=== PATIENT | male | born 2000 | race Caucasian/White ===

== ENCOUNTER 2020-04-19 23:32 | Emergency (ER) | payer OTHER ==
[~2020-04-19 23:32] MED LIST: KEFLEX250 MG PO; NAPROXEN500 MG PO
[2020-04-20 00:31] LABS: BASOPHIL 1.1 % (0-2); EOSINOPHIL 6.3 % (0-5); HCT 43.9 % (42.0-52.0); HGB 15.9 g/dl (13.2-18.0); LYMPHOCYTE 39.2 % (15-48); MCH 31.9 pg (25.0-31.0); MCHC 36.2 g/dL (32.0-36.0); MCV 88.2 fL (78.0-100.0); MONOCYTE 8.9 % (0-12); MPV 10.2 fL (6.0-9.5); NEUTROPHIL 44.1 % (41-80); NRBC 0; PLT 184 K/uL (150-400); RBC 4.98 M/uL (4.70-6.00); RDW 12.2 % (11.5-14.0); WBC 10.8 K/uL (4.0-10.5)
[2020-04-20 00:47] LABS: ALBUMIN 3.7 g/dL (3.4-5.0); BILIRUBIN - TOTAL 0.3 mg/dL (0.2-1.0); CREATININE 0.8 mg/dL (0.67-1.17); GLOBULIN (CALCULATION) 3.1 g/dL; POTASSIUM 3.9 mmol/L (3.5-5.1); TOTAL PROTEIN 6.8 g/dL (6.4-8.2)
[2020-04-20 01:39] LABS: INR 1.12 (0.9-1.2); PROTHROMBIN TIME 13.7 SECONDS (11.4-13.6); PTT 25.2 SECONDS (22.2-34.7)
[2020-04-20 01:40] LABS: D-DIMER < 0.27 ug/mLFEU (0.00-0.41)
[2020-04-20 01:57] LABS: LDH 187 U/L (85-227); LIPASE 155 U/L (73-393)
[2020-04-20] MEDS ORDERED: ZPAK PO (03:42)
[2020-04-20] MEDS ORDERED: PREDNISONE 20MG20 MG PO (03:42)
[2020-04-20] MEDS ORDERED: PHENERGAN12.5 M1 PO (03:42)
== END 2020-04-20 03:50 | disposition home or self-care (01) ==
LOC: FER 23:32
PROVIDERS: Emergency Medicine Emergency Medical Services
DX: J18.9 Pneumonia, unspecified organism (principal); F17.210 Nicotine dependence, cigarettes, uncomplicated; Z88.5 Allergy status to narcotic agent
CPT/HCPCS: 36415; 71045; 80053; 82728; 83605; 83615; 83690; 84145; 85025; 85379; 85610; 85730; 87040; 87339; 93005

== ENCOUNTER 2020-06-25 00:26 | Emergency (ER) | payer OTHER ==
[~2020-06-25 00:26] MED LIST changes: +PHENERGAN12.5 M1 PO; +PREDNISONE 20MG20 MG PO; +ZPAK PO
== END 2020-06-25 03:19 | disposition home or self-care (01) ==
LOC: FER 00:26
DX: R51.9 Headache, unspecified (principal); M54.2 Cervicalgia; F17.210 Nicotine dependence, cigarettes, uncomplicated
CPT/HCPCS: 70450; 72125

== ENCOUNTER 2021-01-13 13:50 | Emergency (ER) | payer OTHER ==
[2021-01-13 16:12] LABS: BASOPHIL 1.5 % (0-2); EOSINOPHIL 5.5 % (0-5); HCT 45.8 % (42.0-52.0); HGB 16.4 g/dl (13.2-18.0); LYMPHOCYTE 34.8 % (15-48); MCH 32.2 pg (25.0-31.0); MCHC 35.8 g/dL (32.0-36.0); MCV 89.8 fL (78.0-100.0); MONOCYTE 5.8 % (0-12); MPV 10.1 fL (6.0-9.5); NRBC 0; PLT 193 K/uL (150-400); RDW 11.9 % (11.5-14.0); WBC 10.5 K/uL (4.0-10.5)
[2021-01-13 16:29] LABS: BUN/CREAT RATIO (CALC) 11.5 RATIO; CREATININE 0.96 mg/dL (0.67-1.17); POTASSIUM 4.1 mmol/L (3.5-5.1)
[2021-01-13] MEDS ORDERED: MEDROL 4MG DOSEP4 MG PO (16:32)
== END 2021-01-13 16:55 | disposition home or self-care (01) ==
LOC: FER 13:50
PROVIDERS: Nurse Practitioner Family
DX: M48.061 Spinal stenosis, lumbar region without neurogenic claudication (principal); Z88.6 Allergy status to analgesic agent
CPT/HCPCS: 36415; 72146; 72148; 80048; 85025

== ENCOUNTER 2021-06-11 04:44 | Emergency (ER) | payer OTHER ==
[~2021-06-11 04:44] MED LIST changes: +MEDROL 4MG DOSEP4 MG PO
[2021-06-11 05:34] LABS: BASOPHIL 1.3 % (0-2); EOSINOPHIL 4.9 % (0-5); HCT 45.9 % (42.0-52.0); HGB 16.4 g/dl (13.2-18.0); MCH 31.8 pg (25.0-31.0); MCHC 35.7 g/dL (32.0-36.0); MCV 89.1 fL (78.0-100.0); MONOCYTE 7.3 % (0-12); MPV 9.8 fL (6.0-9.5); NEUTROPHIL 42.8 % (41-80); NRBC 0; PLT 194 K/uL (150-400); RBC 5.15 M/uL (4.70-6.00); WBC 12.1 K/uL (4.0-10.5)
[2021-06-11 06:38] LABS: BUN/CREAT RATIO (CALC) 16.1 RATIO; CREATININE 0.87 mg/dL (0.67-1.17)
== END 2021-06-11 07:58 | disposition home or self-care (01) ==
LOC: FER 04:44
PROVIDERS: Internal Medicine
DX: R04.2 Hemoptysis (principal); J45.909 Unspecified asthma, uncomplicated; F17.210 Nicotine dependence, cigarettes, uncomplicated; Z88.5 Allergy status to narcotic agent
CPT/HCPCS: 36415; 71275; 80048; 84145; 84484; 85025; 93005; Q9967